=== PATIENT | male | born 1965 | race Caucasian/White ===

== ENCOUNTER 2020-05-28 19:18 | Emergency (ER) | payer OTHER ==
[~2020-05-28] VITALS: Ht 185.4 cm; Wt 111.0 kg
[2020-05-28] MEDS ORDERED: amox tr/potassium clavulanate 875/125mg TAB PO ONE (21:55)
[2020-05-28] MEDS ORDERED: TETanus/Pertussis (Acell)/Diphther VAC/PF (Tdap-Adult) 0.5ml syringe IMVAC ONE (21:55)
[2020-05-28] MEDS ORDERED: AMOX-422 PO (22:17)
[2020-05-28 22:50] VITALS: BP 130/78
== END 2020-05-28 22:45 | disposition home or self-care (01) ==
LOC: ER 19:19
DX: S81.851D Open bite, right lower leg, subsequent encounter (principal); W54.0XXD Bitten by dog, subsequent encounter; Z79.899 Other long term (current) drug therapy
CPT/HCPCS: 73590; 90471; 90715; 99283

== ENCOUNTER 2020-08-30 17:21 | Emergency (ER) | payer OTHER ==
[~2020-08-30] VITALS: Ht 185.4 cm; Wt 113.6 kg
[2020-08-30 21:09] VITALS: BP 138/56
== END 2020-08-30 21:15 | disposition home or self-care (01) ==
LOC: ER 17:21
DX: S70.02XA Contusion of left hip, initial encounter (principal); J45.909 Unspecified asthma, uncomplicated; W18.39XA Other fall on same level, initial encounter; Y93.89 Activity, other specified; Y92.89 Other specified places as the place of occurrence of the external cause; Y99.8 Other external cause status
CPT/HCPCS: 73502; 99283

== ENCOUNTER 2023-08-16 15:32 | Emergency (ER) | payer OTHER ==
[~2023-08-16] VITALS: Ht 185.4 cm; Wt 119.2 kg
[2023-08-16 18:36] VITALS: BP 138/89; PULSE 63; RESP 62; TEMP 98.1; O2SAT 98
== END 2023-08-16 19:39 | disposition home or self-care (01) ==
LOC: ER 15:32
DX: S16.1XXA Strain of muscle, fascia and tendon at neck level, initial encounter (principal); S39.012A Strain of muscle, fascia and tendon of lower back, initial encounter; V89.2XXA Person injured in unspecified motor-vehicle accident, traffic, initial encounter; Y93.89 Activity, other specified; Y92.89 Other specified places as the place of occurrence of the external cause; Y99.8 Other external cause status
CPT/HCPCS: 72125; 72131; 99284